=== PATIENT | male | born 1930 | race Caucasian/White ===

== ENCOUNTER 2016-11-26 22:03 | Inpatient (IN) | payer MEDICARE, OTHER ==
--- NOTE | ~2016-11-26 | HP ---
History And Physical [facility] [address] [facility] [place]. [address] NAME: EMILE KONG : [birth year] STATUS : ADM Eduarda PAT#: [id number] AGE: 86 ADM/REG DATE : 11/27/16 MR#: [id number] REPORT SERV DATE: 11/27/16 DICTATED BY: RANJIT SOLOMON DATE: 11/27/16 REPORT STATUS : Draft TRANSCRIBED BY: MODL DATE: 11/27/16 DATE OF ADMISSION: 11/27/2016 CHIEF COMPLAINT: Chest pain and shortness of breath. HISTORY OF PRESENT ILLNESS: This is an 86-year-old male who has a history of hypertension, COPD, coronary artery disease with PTCA in the past, who presents to the emergency room at [facility] with the above-mentioned complaint. History was obtained from the patient, his , and other family who are at his bedside and reviewing data available on the [employer] system. According to the patient, who lives in [place], he had driven down to [place] to attend a [employer] meeting. They finished the meeting, and he was coming back to the car when he started having substernal chest pain and severe shortness of breath. He was able to return to his car where he had sublingual nitroglycerin spray and used it couple of times with some very brief relief, but the pain came right back. He describes the pain as continuous pain substernally, not radiating anywhere, no aggravating or relieving factors. It was on an 8-9 pain scale. It was not associated with any nausea, vomiting, or diaphoresis. He immediately called EMS who picked him up and brought him to the emergency room. In the emergency room, he continued to have chest pain, initial workup revealed he had a lung infiltrate along with acute kidney injury, met sepsis by criteria and an EKG showed atrial fibrillation. He was also hypoxemic upon arrival requiring supplemental oxygen therapy. Hospitalist Service was asked to admit him for further evaluation and treatment. At the time of my evaluation, he continued to have chest pain although he said most of it has been relieved. He did not have any palpitations or orthopnea. He had a cough, which was essentially nonproductive, not associated with hemoptysis, night sweats, or weight loss. He has not had any fevers or chills recently. Denied any nausea, vomiting, diarrhea, hematemesis, hematochezia, hematuria, or dysuria. No other history of recent travel or exposures other than those mentioned above. He has had his annual flu shots. SOCIAL HISTORY: He has a remote history of smoking of 80-pack years, but has not smoked in more than 20 years. He denied alcohol use or recreational drug use. FAMILY HISTORY: Noncontributory. MEDICATIONS: At home were reviewed by me in the chart today and reordered by me. 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 REVIEW OF SYSTEMS: As in history of present illness. All other systems were reviewed in detail and are quite unremarkable. History And Physical [address] [address] NAME: EMILE KONG : [birth year] STATUS : ADM Eduarda PAT#: [id number] AGE: 86 ADM/REG DATE : 11/27/16 MR#: [id number] REPORT SERV DATE: 11/27/16 DICTATED BY: RANJIT SOLOMON DATE: 11/27/16 REPORT STATUS : Draft TRANSCRIBED BY: ANA DATE: 11/27/16 PHYSICAL EXAMINATION: GENERAL: This is a pleasant 86-year-old, not in any acute distress. HEENT: His head is atraumatic, normocephalic. He is alert, awake, oriented to time, place, and person. His pupils are equal, reacting to light and accommodating. External ocular muscles are intact. Membranes are moist and pink. Sclerae are nonicteric. NECK: Supple with no jugular venous distention, lymphadenopathy, or thyromegaly. LUNGS: Clear to auscultation with no wheezes, rubs, or crackles. HEART: Heart sounds were regular with no murmurs, rubs, or gallops. ABDOMEN: Soft, nontender. Bowel sounds are present. EXTREMITIES: Showed trace pitting lower extremity edema without any cyanosis or clubbing. NEUROLOGIC: Grossly intact. No focal sensory or motor deficits. Higher functions appeared intact. Gait was not examined. VITAL SIGNS: His vital signs today showed a temperature of 100.1, pulse rate was 124, respirations 16 a minute, and blood pressure upon arrival was 165/74, oxygen saturations were 91% breathing 4 L of oxygen via nasal cannula. LABORATORY DATA: Reviewed on the [employer] system showed a pH of 7.50, pCO2 was 30, pO2 of 46, bicarb was 22.6. This was on room air. His CMP showed a sodium of 141, potassium 3.7, chloride 108, CO2 of 25, BUN was 28 with a creatinine of 2.16 which is up from his baseline of 1.7 to 1.8. His glucose was 154. Lactate was 1.5 today. Troponin was 0.02. CBC showed a white blood cell count of 15,900, hemoglobin was 14.4, hematocrit 42.1, and platelet count was 457,000. His MCV was 101.9. His prothrombin time was 15.1 with an INR of 1.2. Influenza A and B were negative. Urinalysis was grossly unremarkable. Films of the chest x ray were reviewed by me on the PACS today and interpreted by me. Per my interpretation, there may be a right lower lobe, right middle lobe infiltrate without any lobar consolidations or effusions seen. A 12-lead EKG done in the emergency room was reviewed and interpreted by me. There is atrial fibrillation with a rate of 70-100 a minute. Of note, his room air oxygen saturations upon arrival was 88%. IMPRESSION: 1. Chest pain. 2. Pneumonia. 3. Atrial fibrillation with rapid ventricular response. 4. Acute kidney injury. 5. Sepsis by criteria. 6. Essential hypertension. 7. Hypoxemia. 8. Chronic obstructive pulmonary disease. 9. Coronary artery disease with history of percutaneous transluminal coronary angioplasty. PLAN: We will admit Mr. Kong to the Hospitalist Service with telemetry for close monitoring. This will be for a 24-hour observation period. We will obtain cultures, start him on empiric IV antibiotics for community-acquired pneumonia. Check a procalcitonin, follow Gram-stain cultures, and proceed accordingly. His symptoms are concerning especially in light of having atrial fibrillation, not on anticoagulation. We will go ahead and get a CTA of his chest to rule out any pulmonary embolism. Meanwhile, also start him on intravenous heparin for his atrial fibrillation. We will get an EKG in the morning and also History And Physical [address] [address] NAME: EMILE KONG : [birth year] STATUS : ADM Eduarda PAT#: [id number] AGE: 86 ADM/REG DATE : 11/27/16 MR#: [id number] REPORT SERV DATE: 11/27/16 DICTATED BY: RANJIT SOLOMON DATE: 11/27/16 REPORT STATUS : Draft TRANSCRIBED BY: ANA DATE: 11/27/16 an echocardiogram and consult Cardiology Service to see him in the morning. Meanwhile, we will start him on IV fluids for volume resuscitation. Check chemistry, electrolytes in the morning and replace as needed. We will also maximize his bronchodilator treatments, continue his supplemental oxygen therapy, and place him on intravenous corticosteroids and chest physical therapy as well. We will also continue his other medications and treatments while he is here. Please see today's orders for details. I have discussed the above plans with the patient. His questions were answered. He and his family are agreeable to the above recommendations. Hospitalist Service will be following him during his stay here. /ANA Ranjit Solomon M.D. / [id number] CC: Doug Hernandez Jr, MD Alan Crews, M.D.
--- NOTE | ~2016-11-26 | DS ---
Discharge Summary [facility] [id number] [place]. [address] NAME: EMILE KONG : [birth year] STATUS : DIS IN PAT#: [id number] AGE: 86 ADM/REG DATE : 11/27/16 MR#: [id number] REPORT SERV DATE: 11/30/16 DICTATED BY: DATE: REPORT STATUS : Draft TRANSCRIBED BY: MODL DATE: 11/29/16 ADMISSION DATE: 11/27/2016 DISCHARGE DATE: 11/29/2016 CONSULTANTS: James Martinez M.D. DISCHARGE DIAGNOSES: 1. Severe sepsis present at admission with associated acute hypoxemic respiratory failure and acute kidney injury on chronic kidney disease stage 3. 2. Right lower lobe community-acquired pneumonia. 3. Paroxysmal atrial fibrillation with rapid ventricular response-resolved. Initiated on anticoagulation this admission. 4. Demand related ischemia-for outpatient followup. 5. History of coronary artery disease and prior cardiac stent-for outpatient followup. 6. Hypertension. 7. Hyperlipidemia. 8. 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 9. Remote history of tobacco. IMAGIN. Portable chest x-ray 11/26/2016 right basilar infiltrate. 2. Echocardiogram 11/27/2016, normal left ventricular size and systolic function with ejection fraction 60%. No regional wall motion abnormalities. Mild diastolic dysfunction. Normal right ventricular size and systolic function. Mild aortic valve stenosis with mean pressure gradient of 12. No evidence of apical thrombus. PERTINENT LABS: Blood gas at admission with pH 7.42, pCO2 of 32, pO2 of 66, oxygen saturation 93% on room air. Procalcitonin as high as 6.08, downtrending at discharge with value of 4.69. Creatinine as high as 2.55, 2.0 at discharge. Glucose values between 135 and 230. Liver enzymes normal. Troponin values between 0.06 and 0.07. BNP 167. Lactic acid level 1.5 to 2.2. White blood cell count initially 25.1, 17.1 at discharge. Hemoglobin 12.1 with elevated MCV of 101, platelets 413 to 468. Coagulation studies normal. Flu swab negative. Strep pneumococcal antigen and Legionella antigens negative. Urinalysis showed hazy urine with trace ketones. Blood cultures x two were negative, and no sputum sample could be obtained. BRIEF HISTORY: For full details, please see the previously dictated history of present illness by Dr. Ranjit Frazier. This is an 86-year-old white male with past cardiac history, who presented to the emergency department with chief complaint of chest pain and shortness of breath. Initial concern was for a cardiac process; however, initial workup in the emergency department revealed right lower lobe infiltrate along with acute kidney injury and a criteria meeting sepsis. EKG also showed atrial fibrillation with rapid ventricular response. He was hypoxemic and admitted to the Hospitalist Service for evaluation of all of those symptoms. HOSPITAL COURSE: The patient was admitted to [facility], cultures were obtained. He was Discharge Summary [address] [address] NAME: EMILE KONG : [birth year] STATUS : DIS IN PAT#: [id number] AGE: 86 ADM/REG DATE : 11/27/16 MR#: [id number] REPORT SERV DATE: 11/30/16 DICTATED BY: DATE: REPORT STATUS : Draft TRANSCRIBED BY: MODL DATE: 11/29/16 started on empiric IV antibiotics for community-acquired pneumonia including Rocephin and azithromycin. Procalcitonin level was elevated. Lactic acid was negative. His atrial fibrillation with rapid ventricular response resolved quickly. He was managed with a heparin drip during the hospitalization. Cardiology consultation was obtained. He demonstrated some demand related ischemia with troponin values between 0.06 and 0.07. He responded well to this with downtrend in his white blood cell count, resolution of fevers, decrease in dyspnea, and resolution of chest pain. The patient was seen in consultation by Cardiology who initially recommended possible stress test prior to discharge versus outpatient stress test. The patient was adamant that he wanted to go home on 11/29/2016 and appeared well to do so, again with no recurrence of chest pain after treatment for pneumonia was initiated. Thus, he will follow up with Dr. James Martinez on 12/27/2016 for consideration of stress testing. He is being discharged on Eliquis for atrial fibrillation and stroke prophylaxis. He also needs to follow up with Dr. Villalobos within a week for repeat labs including a CBC and BMP as his white count is still slightly elevated at discharge, on steroids and antibiotics, and he will need close monitoring of his creatinine. DISCHARGE DISPOSITION: To home in the care of his supportive with no specific activity restrictions although will need to wear two liters of oxygen for now until able to be weaned further by primary care provider. Followup appointments as above. Adhere to a cardiac diet for prior comorbid conditions. DISCHARGE MEDICATIONS: Include: 1. Amlodipine 5 mg p.o. daily. 2. Aspirin 81 mg p.o. daily. 3. Lipitor 60 mg p.o. daily. 4. Januvia 25 mg p.o. daily. 5. Carvedilol 12.5 mg p.o. twice a day. 6. Eliquis 2.5 mg p.o. twice a day. 7. Pletal 50 mg p.o. twice a day. 8. Amaryl 1 mg p.o. twice a day. 9. Hydroxyurea 500 mg p.o. daily. 10.Lozol 2.5 mg p.o. q. Tuesday, Tuesday, Tuesday morning. 11.Multivitamin one tablet p.o. daily. 12.Ranexa 500 mg p.o. twice a day. 13.Flomax 0.4 mg p.o. daily. 14.Combivent one puff inhaled four times a day. 15.Medrol Dosepak-one was dispensed to take as directed. 16.Cefdinir 300 mg p.o. q.12 hours for five days. 17.Azithromycin 500 mg p.o. daily for five days. The patient's losartan was held due to chronic kidney disease stage 3 versus 4. 40 minutes were spent in completion of the discharge summary. Discharge Summary [address] [address] NAME: EMLIE KONG : [birth year] STATUS : DIS IN [facility]#: [id number] AGE: 86 ADM/REG DATE : 11/27/16 MR#: [id number] REPORT SERV DATE: 11/30/16 DICTATED BY: DATE: REPORT STATUS : Draft TRANSCRIBED BY: ANA DATE: 11/29/16 DICTATED BY: Elizabeth Lucero/ANA Miguel Salas M.D. / [id number] CC: Elizabeth Lucero M.D. David Wendt, M.D.
--- NOTE | ~2016-11-26 | CN ---
Consultation Report [facility] [address] [place]. [address] NAME: EMILE KONG : [birth year] STATUS : ADM IN [facility]#: [id number] AGE: 86 ADM/REG DATE : 11/27/16 MR#: [id number] REPORT SERV DATE: 11/27/16 DICTATED BY: RADHA MARTINEZ DATE: 11/27/16 REPORT STATUS : Draft TRANSCRIBED BY: MODL DATE: 11/27/16 CARDIOLOGY CONSULTATION DATE OF CONSULTATION: INDICATION: Elevated troponin. HISTORY: The patient is an 86-year-old, white male, former smoker with a history of coronary artery disease and an CT in 1976. He had previous stenting in 2001, reportedly by Dr. Gray. He has undergone percutaneous intervention by Dr. Perez for claudication in his legs. He follows with Dr. Samuel in [place] for majority of his care. He states that he had been in his usual state of health and had gone down to [place] on 11/26/2016 to attend a [employer] meeting. He had another member who was blind and felt compelled to make that trip. On the way home, however, he became more breathless with substernal chest discomfort and a cough. He took some nitroglycerin spray with brief relief. According to the ER, he described the pain as 8 or 9/10. There was no nausea or vomiting. An EKG in the emergency room indicated atrial fibrillation. He also had an infiltrate on his x-ray. Presently, he is comfortable. He states that he has not had any overt exertional symptoms and he remains quite active in his community. CURRENT HOME MEDICATIONS: Amlodipine 5 a day, aspirin 81 a day, atorvastatin 60 per day, carvedilol 12.5 b.i.d., cilostazol 50 b.i.d., glimepiride 1 mg b.i.d., hydroxyurea 500 per day, indapamide 2.5 three days a week, ipratropium and albuterol sulfate one puff four times a day, losartan 100 per day, multivitamins daily, ranolazine 500 b.i.d., sitagliptin 25 daily, and tamsulosin 0.4 per day. ALLERGIES OR INTOLERANCES: None known. SOCIAL HISTORY: He has an 08-dfeg-naam smoking history, but quit in 1976. He does chew tobacco usually three or four times a day. He is . He grew up in the [place] area. His mother in childbirth with another sibling and he started working at age 11 with [employer]. 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 FAMILY HISTORY: As mentioned, mother at age 44 in childbirth. Father lived until 99. He has one brother who at age 16 with meningitis. Sister with COPD in her 70s. Another brother at age 68 of unknown causes. PAST MEDICAL HISTORY/REVIEW OF SYSTEMS: Positive for hypertension, diabetes, BPH. He has seen Dr. Hernandez in the past and has had previous TURBTs. He has underlying hyperlipidemia. He is on appropriate therapy. He is on appropriate therapy for his underlying COPD. Consultation Report [address] [address] NAME: EMILE KONG : [birth year] STATUS : ADM IN [facility]#: [id number] AGE: 86 ADM/REG DATE : 11/27/16 MR#: [id number] REPORT SERV DATE: 11/27/16 DICTATED BY: RADHA MARTINEZ DATE: 11/27/16 REPORT STATUS : Draft TRANSCRIBED BY: ANA DATE: 11/27/16 PHYSICAL EXAMINATION: GENERAL: An 86-year-old white male, pleasant and conversant, presently comfortable. VITAL SIGNS: Blood pressure 141/65, pulse is 87, respirations 16. SKIN: No xanthelasmas. HEENT: Normocephalic. There is no pallor. Sclerae white. JVD is not elevated. There is a left carotid bruit. CHEST: Sparse crackles at the right base. CARDIAC: S1 normal, S2 physiologic. There is a 2/6 systolic ejection murmur transmitted to the base. ABDOMEN: Soft. EXTREMITIES: Without edema. Pulses are diminished bilaterally. NEUROLOGIC: No focal deficits. MUSCULOSKELETAL: No kyphosis. LABORATORY DATA: ECG showed sinus rhythm with frequent PACs. I do not see a strip demonstrating overt atrial fibrillation, although this was reported from the emergency room. His procalcitonin is 3.95, BUN 32, creatinine 2.55. His last creatinine in 2010 was 1.7. Troponin is 0.07. Subsequent labs are pending. White count 25.1, hemoglobin 13.3, platelets 413,000. IMPRESSION: An 86-year-old white male with underlying hypertension, chronic kidney disease, chronic obstructive pulmonary disease, and pneumonia with elevated troponin, and peripheral vascular disease. The elevated troponin likely represents type 2 myocardial infarction, although he certainly is at a higher risk for underlying progression of his coronary disease. He may benefit from perfusion study prior to discharge, but at present, focus should be on treating his acute illness. Further recommendations forthcoming. JEAN CARLOS/MODL Radha Martinez M.D. / [id number] CC: Elizabeth Lucero M.D. , [facility]
[2016-11-26 20:20] LABS: BE (BASE EXCESS) 0.5 MEQ/L (0 +/- 2.5); CARBOXYHEMOGLOBIN 1.6 % (0-3); HCO3 (ACTUAL BICARBONATE) 22.6 MEQ/L (23-27); HEMOBLOGIN CONTENT 14.9 G/DL (14-18); INSTRUMENT SERIAL # 8087; METHEMOGLOBIN 0.2 % (0-3); PCO2 (CO2 TENSION) 30 MMHG (35-45); PO2 (O2 TENSION) 46 MMHG (79-93)
[2016-11-26 20:21] LABS: ALLENS TEST Pos; O2 CONTENT 17.4 VOL% (18-24); OPERATOR ID 33449; SAMPLE Arterial
[2016-11-26 21:43] LABS: BASOPHILS 0.1 %; BASOPHILS ABSOLUTE 0.02 10/3/uL (0.0-0.16); EOSINOPHILS 0.3 %; EOSINOPHILS ABSOLUTE 0.05 10/3/uL (0.0-0.53); HEMATOCRIT 42.1 % (40.0-51.0); HEMOGLOBIN 14.4 g/dL (13.6-17.8); IMMATURE GRANULOCYTES 0.2 %; IMMATURE GRANULOCYTES ABSOLUTE 0.03 10/3/uL (0.0-0.11); LYMPHOCYTES 3.8 %; LYMPHOCYTES ABSOLUTE 0.61 10/3/uL (0.67-4.30); MEAN CORPUS HGB CONC 34.2 g/dL (32.0-36.0); MEAN CORPUSCULAR HEMOGLOB 34.9 pg (26.0-34.0); MEAN CORPUSCULAR VOLUME 101.9 fL (80-100); MEAN PLATELET VOLUME 9.9 fL (9.2-13.0); MONOCYTES 4.6 %; MONOCYTES ABSOLUTE 0.73 10/3/uL (0.21-1.20); NEUTROPHILS ABSOLUTE 14.48 10/3/uL (2.02-8.40); PLATELET COUNT 457 10/3/uL (150-400); RBC DISTRIBUTION WIDTH 13.8 % (12.0-16.0); RED CELL COUNT 4.13 10/6/uL (4.7-6.1)
[2016-11-26 21:45] LABS: ER CBC TAT 0 Hrs 13 Mins; MANUAL DIFF NO %; WHITE BLOOD CELLS 15.9 10/3/uL (4.5-10.5)
[2016-11-26 21:54] LABS: ALBUMIN 3.5 G/DL (3.5-5.0); ALKALINE PHOSPHATASE 82 U/L (45-117); BUN (BLOOD UREA NITROGEN) 28 MG/DL (6-23); CALCIUM, SERUM 8.9 MG/DL (8.5-10.4); CHLORIDE, SERUM 108 MMOL/L (96-112); CO2 (CARBON DIOXIDE) 25 MMOL/L (24-34); CREATININE 2.16 MG/DL (0.70-1.30); GFR AFRICAN AMERICAN 31 ML/MIN (>=60); GFR NON AFRICAN AMERICAN 26 ML/MIN (>=60); GLOBULIN 3.4 G/DL (2.5-4.1); POTASSIUM, SERUM 3.7 MMOL/L (3.5-5.3); SGOT(AST) 11 U/L (5-40); SGPT(ALT) 16 U/L (5-65); SODIUM, SERUM 141 MMOL/L (135-148); TOTAL BILIRUBIN 0.9 MG/DL (0-1.2); TOTAL PROTEIN 6.9 G/DL (6.0-8.5); TROPONIN I <0.02 NG/ML (<0.05)
[2016-11-26 21:55] LABS: GLUCOSE, SERUM 154 MG/DL (60-99)
[2016-11-26 21:58] LABS: ASCORBIC ACID (UR NOT ORDER) NEG (NEG); BILIRUBIN, URINE NEGATIVE (NEG); ER URINALYSIS TAT 0 Hrs 14 Mins; KETONE, URINE TRACE MG/DL (NEG); LEUKOCYTE ESTERASE(NOT OR NEG (NEG); NITRITE (URINE) NEG (NEG); WBC (NOT ORDERED) (RFLEX) 2 (0-5)
[~2016-11-26 22:03] MED LIST: AMARYL1 MG PO; AMARYL2 PO; ASAB PO; CILOSTAZOL50 MG PO; COMBIVENT RESPIM4 GM INH; COREG12 PO; COREG25 PO; COZAAR100 MG PO; FLOMAX4 PO; HYDREA PO; JANUVIA25 MG PO; LIPITOR40 PO; LOZOLTAB PO; MULTIVIT/MIN PO; NORV5 PO; PLETAL100 PO; RAN500 PO
[2016-11-26 22:21] LABS: INTERNATIONAL NORMAL RATI 1.2 UNITS (-); PROTIME (NOT ORD) 15.1 SEC (12.0-14.5)
[2016-11-26 22:25] LABS: INFLUENZA A SCREEN NEGATIVE (NEGATIVE); INFLUENZA B SCREEN NEGATIVE (NEGATIVE)
[2016-11-27 01:02] LABS: PROCALCITONIN 0.17 ng/mL (<0.5)
[2016-11-27 04:11] LABS: HEMATOCRIT 39.6 % (40.0-51.0); HEMOGLOBIN 13.3 g/dL (13.6-17.8); MEAN CORPUS HGB CONC 33.6 g/dL (32.0-36.0); MEAN CORPUSCULAR HEMOGLOB 34.7 pg (26.0-34.0); MEAN CORPUSCULAR VOLUME 103.4 fL (80-100); MEAN PLATELET VOLUME 9.8 fL (9.2-13.0); PLATELET COUNT 413 10/3/uL (150-400); RBC DISTRIBUTION WIDTH 13.7 % (12.0-16.0); RED CELL COUNT 3.83 10/6/uL (4.7-6.1)
[2016-11-27 04:17] LABS: WHITE BLOOD CELLS 25.1 10/3/uL (4.5-10.5)
[2016-11-27 04:18] LABS: BUN (BLOOD UREA NITROGEN) 32 MG/DL (6-23); CALCIUM, SERUM 8.4 MG/DL (8.5-10.4); CHLORIDE, SERUM 109 MMOL/L (96-112); CO2 (CARBON DIOXIDE) 25 MMOL/L (24-34); CREATININE 2.55 MG/DL (0.70-1.30); GFR AFRICAN AMERICAN 25 ML/MIN (>=60); GFR NON AFRICAN AMERICAN 22 ML/MIN (>=60); GLUCOSE, SERUM 203 MG/DL (60-99); MANUAL DIFF YES %; POTASSIUM, SERUM 3.9 MMOL/L (3.5-5.3); SODIUM, SERUM 144 MMOL/L (135-148)
[2016-11-27 04:30] LABS: BAND NEUTROPHILS 6 %; LYMPHOCYTES 8 %; LYMPHOCYTES ABSOLUTE (CALC) 2.01 10/3/uL (0.67-4.30); MACROCYTES 1+ (5-10/OIF) (0-5/OIF); MONOCYTES 5 %; MONOCYTES ABSOLUTE (CALC) 1.26 10/3/uL (0.21-1.20); NEUTROPHILS ABSOLUTE (CALC) 21.84 10/3/uL (2.02-8.40); PLATELET ESTIMATE SLT INC (ADEQUATE); SEGMENTED NEUTROPHIL (0) 81 %; TOTAL NUCLEATED CELLS 100
[2016-11-27 04:45] LABS: PROCALCITONIN 3.95 ng/mL (<0.5)
[2016-11-28 05:30] LABS: BASOPHILS 0 %; BASOPHILS ABSOLUTE 0.01 10/3/uL (0.0-0.16); EOSINOPHILS 0 %; HEMOGLOBIN 11.8 g/dL (13.6-17.8); IMMATURE GRANULOCYTES 0.5 %; LYMPHOCYTES 4.9 %; LYMPHOCYTES ABSOLUTE 0.98 10/3/uL (0.67-4.30); MEAN CORPUS HGB CONC 32.8 g/dL (32.0-36.0); MEAN CORPUSCULAR HEMOGLOB 33.8 pg (26.0-34.0); MEAN CORPUSCULAR VOLUME 103.2 fL (80-100); MEAN PLATELET VOLUME 9.9 fL (9.2-13.0); MONOCYTES 3.5 %; MONOCYTES ABSOLUTE 0.71 10/3/uL (0.21-1.20); NEUTROPHILS 91.1 %; NEUTROPHILS ABSOLUTE 18.36 10/3/uL (2.02-8.40); PLATELET COUNT 430 10/3/uL (150-400); RBC DISTRIBUTION WIDTH 13.6 % (12.0-16.0); RED CELL COUNT 3.49 10/6/uL (4.7-6.1); WHITE BLOOD CELLS 20.2 10/3/uL (4.5-10.5)
[2016-11-28 05:31] LABS: MANUAL DIFF NO %
[2016-11-28 05:33] LABS: CALCIUM, SERUM 8.6 MG/DL (8.5-10.4); CHLORIDE, SERUM 110 MMOL/L (96-112); CO2 (CARBON DIOXIDE) 21 MMOL/L (24-34); POTASSIUM, SERUM 4.2 MMOL/L (3.5-5.3); SODIUM, SERUM 141 MMOL/L (135-148)
[2016-11-28 05:35] LABS: BUN (BLOOD UREA NITROGEN) 40 MG/DL (6-23); CREATININE 1.99 MG/DL (0.70-1.30); GFR AFRICAN AMERICAN 34 ML/MIN (>=60); GFR NON AFRICAN AMERICAN 29 ML/MIN (>=60); GLUCOSE, SERUM 145 MG/DL (60-99)
[2016-11-28 06:21] LABS: PROCALCITONIN 6.08 ng/mL (<0.5)
[2016-11-29 05:42] LABS: BASOPHILS 0 %; EOSINOPHILS 0.1 %; EOSINOPHILS ABSOLUTE 0.01 10/3/uL (0.0-0.53); HEMATOCRIT 35.5 % (40.0-51.0); HEMOGLOBIN 12.1 g/dL (13.6-17.8); IMMATURE GRANULOCYTES 0.4 %; IMMATURE GRANULOCYTES ABSOLUTE 0.07 10/3/uL (0.0-0.11); LYMPHOCYTES 5.1 %; LYMPHOCYTES ABSOLUTE 0.87 10/3/uL (0.67-4.30); MANUAL DIFF NO %; MEAN CORPUS HGB CONC 34.1 g/dL (32.0-36.0); MEAN CORPUSCULAR HEMOGLOB 34.4 pg (26.0-34.0); MEAN CORPUSCULAR VOLUME 100.9 fL (80-100); MONOCYTES 4.1 %; MONOCYTES ABSOLUTE 0.71 10/3/uL (0.21-1.20); NEUTROPHILS 90.3 %; NEUTROPHILS ABSOLUTE 15.45 10/3/uL (2.02-8.40); PLATELET COUNT 468 10/3/uL (150-400); RBC DISTRIBUTION WIDTH 13.9 % (12.0-16.0); RED CELL COUNT 3.52 10/6/uL (4.7-6.1); WHITE BLOOD CELLS 17.1 10/3/uL (4.5-10.5)
[2016-11-29 05:45] LABS: BUN (BLOOD UREA NITROGEN) 50 MG/DL (6-23); CALCIUM, SERUM 8.4 MG/DL (8.5-10.4); CHLORIDE, SERUM 108 MMOL/L (96-112); CO2 (CARBON DIOXIDE) 25 MMOL/L (24-34); CREATININE 2.09 MG/DL (0.70-1.30); GFR AFRICAN AMERICAN 32 ML/MIN (>=60); GFR NON AFRICAN AMERICAN 27 ML/MIN (>=60); GLUCOSE, SERUM 135 MG/DL (60-99); POTASSIUM, SERUM 4.1 MMOL/L (3.5-5.3); SODIUM, SERUM 141 MMOL/L (135-148)
[2016-11-29 06:36] LABS: PROCALCITONIN 4.69 ng/mL (<0.5)
[2016-11-29] MEDS ORDERED: ELIQUIS 2.5 MG2.5 MG PO (13:52)
[2016-11-29] MEDS ORDERED: OMNICEF300 PO (13:53)
[2016-11-29] MEDS ORDERED: MEDROLPAK4 PO (13:54)
[2016-11-29] MEDS ORDERED: ZITHROMAX500 MG PO (13:54)
== END 2016-11-29 16:04 | disposition home or self-care (01) | DRG 871 ==
LOC: ER 22:03 → 5NO 11-27 00:17
PROVIDERS: Emergency Medicine; Hospitalist; Internal Medicine
DX: A41.9 Sepsis, unspecified organism (principal); J96.01 Acute respiratory failure with hypoxia; N17.9 Acute kidney failure, unspecified; J18.9 Pneumonia, unspecified organism; I24.8 Other forms of acute ischemic heart disease; J44.0 Chronic obstructive pulmonary disease with (acute) lower respiratory infection; N18.3 Chronic kidney disease, stage 3 (moderate); E11.22 Type 2 diabetes mellitus with diabetic chronic kidney disease; E11.65 Type 2 diabetes mellitus with hyperglycemia; R65.20 Severe sepsis without septic shock; I48.0 Paroxysmal atrial fibrillation; I25.10 Atherosclerotic heart disease of native coronary artery without angina pectoris; Z95.5 Presence of coronary angioplasty implant and graft; E78.5 Hyperlipidemia, unspecified; T38.0X5A Adverse effect of glucocorticoids and synthetic analogues, initial encounter; Z87.891 Personal history of nicotine dependence; J44.9 Chronic obstructive pulmonary disease, unspecified; I12.9 Hypertensive chronic kidney disease with stage 1 through stage 4 chronic kidney disease, or unspecified chronic kidney disease
CPT/HCPCS: 36600; 71010; 80048; 80053; 81001; 82805; 82962; 83605; 83735; 83880; 84145; 84484; 85025; 85610; 85730; 87040; 87449; 87804; 93005; 94640; 99285; A9270-GY; C8929; J0456; J2930; Q9957